=== PATIENT | male | born 1965 | race Caucasian/White ===

== ENCOUNTER 2017-11-27 23:12 | Inpatient (IN) ==
--- NOTE | 2017-11-28 00:44 | ED ---
HPI General Chief complaint: Alcohol Stated complaint: [place] Act - [employer] Time Seen by Provider: 11/28/17 00:40 History of Present Illness HPI narrative: This patient was brought in by Police Department for concern of alcohol intoxication. He was felt to be incoherent. The patient is denying any alcohol use. History is very limited however. He reports that he lives in a town home, he does not really know why he is here tonight. According to chart review he has a history of schizoaffective disorder. Related Data Home Medications Medication Instructions Recorded Confirmed Unable to Obtain Home Meds 11/28/17 11/28/17 Allergies Allergy/AdvReac Type Severity Reaction Status Date / Time *MDRO Multi-Drug Resistant AdvReac Unknown Uncoded 10/25/15 17:16 Organism Review of Systems ROS Unobtainable ROS Unobtainable: unobtainable due to mental status ROS: all other systems reviewed are negative [facility] Medical History Medical History Medical history unknown (Acute) Surgical history unknown (Acute) Social History Social History Smoking Status: Refused to answer How Often Do You Have a Drink Containing Alcohol: Unable to Obtain Recent Travel in [facility] within the Last 8 Weeks: No Recent Out of Country Travel within the Last 8 Weeks: No Immunization History Tetanus Immunization: Unable to Assess Hx Influenza Vaccine This Season: Unable to Assess Exam Narrative Exam Narrative: GENERAL: This is a well-developed well-nourished male who is in no acute distress. SKIN: Warm and dry. HEAD: Atraumatic. Normocephalic. EYES: Pupils equal and round. No scleral icterus. No injection or drainage. ENT: No nasal bleeding or discharge. Mucous membranes pink and moist. NECK: Trachea midline. No JVD. CARDIOVASCULAR: Regular rate and rhythm. No murmur appreciated. RESPIRATORY: No accessory muscle use. Clear to auscultation. Breath sounds equal bilaterally. GASTROINTESTINAL: Abdomen soft, non-tender, nondistended. Hepatic and splenic margins not palpable. Colostomy bag noted. MUSCULOSKELETAL: No obvious deformities. NEUROLOGICAL: Awake and alert. No obvious cranial nerve deficits. Motor grossly within normal limits. He knows his name. He believes that the location is January. He believes that the year is January 25. Course Initial Documented Vital Signs Temperature 98.5 F 11/28/17 00:03 Pulse Rate 62 11/28/17 00:03 Respiratory Rate 18 11/28/17 00:03 Blood Pressure 136/93 H 11/28/17 00:03 Pulse Oximetry 98 11/28/17 00:03 Last Documented Vital Signs Temperature 98.5 F 11/28/17 00:03 Pulse Rate 62 11/28/17 00:03 Respiratory Rate 18 11/28/17 00:11 Blood Pressure 136/93 H 11/28/17 00:03 Pulse Oximetry 95 11/28/17 02:25 Medical Decision Making [facility] Narrative Medical decision making narrative: This patient presents under [place] act because he was felt to be intoxicated by police. On examination he appears very confused, answers most questions incorrectly. Lab work and imaging studies were obtained. His alcohol level is negative. Drug screen was positive for benzodiazepines otherwise lab work is unremarkable. At this point time the plan is to admit the patient for observation for altered mental status. Medical Screen Exam Complete: Yes Emergency Medical Condition: Yes Differential Diagnosis Differential Diagnosis: Acute psychosis, delirium, substance-induced mood disorder, electrolyte abnormality, CVA, intracranial mass, meningitis Lab Data Result diagrams: 11/28/17 01:12 11/28/17 01:12 Lab Results 11/28/17 11/28/17 11/28/17 Range/Units 01:12 01:12 01:12 WBC 10.9 (4.0-11.0) th/mm3 RBC 5.50 (4.50-5.90) mil/mm3 Hgb 14.6 (13.0-17.0) gm/dL Hct 43.8 (39.0-51.0) % MCV 79.7 L (80.0-100.0) fL MCH 26.5 L (27.0-34.0) pg MCHC 33.3 (32.0-36.0) % RDW 18.3 H (11.6-17.2) % Plt Count 384 (150-450) th/mm3 MPV 7.6 (7.0-11.0) fL Prelim Diff (Auto) Slide review pending Neut % (Auto) 81.0 H (16.0-70.0) % Lymph % (Auto) 11.0 (9.0-44.0) % [place] % (Auto) 5.3 (0.0-8.0) % Eos % (Auto) 2.3 (0.0-4.0) % Baso % (Auto) 0.4 (0.0-2.0) % Neut # (Auto) 8.8 H (1.8-7.7) th/mm3 Lymph # (Auto) 1.2 (1.0-4.8) th/mm3 [place] # (Auto) 0.6 (0.0-0.9) th/mm3 Eos # (Auto) 0.3 (0.0-0.4) th/mm3 Baso # (Auto) 0.0 (0.0-0.2) th/mm3 WBC Differential . Diff Scan Auto diff confirmed Differential Comment . Platelet Estimate Normal (Normal) Platelet Morphology Normal (Normal) Ovalocytes 1+ H (None) Sodium 146 H (136-145) meq/L Potassium 4.3 (3.5-5.1) meq/L Chloride 109 H (98-107) meq/L Carbon Dioxide 28.7 (21.0-32.0) meq/L Anion Gap 8 (5-15) meq/L BUN 9 (7-18) mg/dL Creatinine 1.04 (0.60-1.30) mg/dL Estimated GFR 75 L (>89) mL/min Random Glucose 79 (74-106) mg/dL Calcium 9.4 (8.5-10.1) mg/dL Total Bilirubin 1.3 H (0.2-1.0) mg/dL AST 79 H (15-37) U/L ALT 46 (12-78) U/L Alkaline Phosphatase 102 (45-117) U/L Ammonia 20 (11-32) mcmol/L Total Protein 7.4 (6.4-8.2) g/dL Albumin 3.7 (3.4-5.0) g/dL Urine Opiates Screen (Neg) Ur Barbiturates Screen (Neg) Ur Amphetamines Screen (Neg) U Benzodiazepines Scrn (Neg) Urine Cocaine Screen (Neg) U Cannabinoids Screen (Neg) Serum Alcohol Less than 3 (0-5) mg/dL 11/28/17 Range/Units 02:20 WBC (4.0-11.0) th/mm3 RBC (4.50-5.90) mil/mm3 Hgb (13.0-17.0) gm/dL Hct (39.0-51.0) % MCV (80.0-100.0) fL MCH (27.0-34.0) pg MCHC (32.0-36.0) % RDW (11.6-17.2) % Plt Count (150-450) th/mm3 MPV (7.0-11.0) fL Prelim Diff (Auto) Neut % (Auto) (16.0-70.0) % Lymph % (Auto) (9.0-44.0) % [place] % (Auto) (0.0-8.0) % Eos % (Auto) (0.0-4.0) % Baso % (Auto) (0.0-2.0) % Neut # (Auto) (1.8-7.7) th/mm3 Lymph # (Auto) (1.0-4.8) th/mm3 [place] # (Auto) (0.0-0.9) th/mm3 Eos # (Auto) (0.0-0.4) th/mm3 Baso # (Auto) (0.0-0.2) th/mm3 WBC Differential Diff Scan Differential Comment Platelet Estimate (Normal) Platelet Morphology (Normal) Ovalocytes (None) Sodium (136-145) meq/L Potassium (3.5-5.1) meq/L Chloride (98-107) meq/L Carbon Dioxide (21.0-32.0) meq/L Anion Gap (5-15) meq/L BUN (7-18) mg/dL Creatinine (0.60-1.30) mg/dL Estimated GFR (>89) mL/min Random Glucose (74-106) mg/dL Calcium (8.5-10.1) mg/dL Total Bilirubin (0.2-1.0) mg/dL AST (15-37) U/L ALT (12-78) U/L Alkaline Phosphatase (45-117) U/L Ammonia (11-32) mcmol/L Total Protein (6.4-8.2) g/dL Albumin (3.4-5.0) g/dL Urine Opiates Screen Neg (Neg) Ur Barbiturates Screen Neg (Neg) Ur Amphetamines Screen Neg (Neg) U Benzodiazepines Scrn Pos H (Neg) Urine Cocaine Screen Neg (Neg) U Cannabinoids Screen Neg (Neg) Serum Alcohol (0-5) mg/dL Imaging Data Radiologist's impression: Head CT 11/28/17 00:40 CONCLUSION: 1. No acute intracranial abnormality. . Discharge Plan Discharge Disposition Patient Disposition: 30 Still Patient Discharge Condition Condition: Stable Discharge Details Diagnosis: Altered mental status Physicians Team ED Provider: Casey Rodriguez ED Midlevel Provider: Rod Briggs Primary Care Provider: Primary Care Balbiri,Vickie Rxs /Orders / Referrals /Forms Prescriptions: No Action Unable to Obtain Home Meds RF: 0 Discharge Interventions Interventions: Vital Signs Last Done: 11/28/17 00:11 Status ED Status: With Doctor
[2017-11-28 01:35] LABS: Baso % (Auto) 0.4 % (0.0-2.0); Eos # (Auto) 0.3 th/mm3 (0.0-0.4); Eos % (Auto) 2.3 % (0.0-4.0); Hematocrit 43.8 % (39.0-51.0); Hemoglobin 14.6 gm/dL (13.0-17.0); Lymph # (Auto) 1.2 th/mm3 (1.0-4.8); Mean Corpuscular HGB Conc 33.3 % (32.0-36.0); Mean Corpuscular Hemoglobin 26.5 pg (27.0-34.0); Mean Corpuscular Volume 79.7 fL (80.0-100.0); Mean Platelet Volume 7.6 fL (7.0-11.0); Mono # (Auto) 0.6 th/mm3 (0.0-0.9); Mono % (Auto) 5.3 % (0.0-8.0); Neut # (Auto) 8.8 th/mm3 (1.8-7.7); Platelet Count 384 th/mm3 (150-450); Red Cell Distribution Width 18.3 % (11.6-17.2); White Blood Count 10.9 th/mm3 (4.0-11.0)
[2017-11-28 01:56] LABS: Alkaline Phosphatase 102 U/L (45-117); Total Protein 7.4 g/dL (6.4-8.2)
[2017-11-28 02:04] LABS: Alanine Aminotransferase 46 U/L (12-78); Albumin 3.7 g/dL (3.4-5.0); Anion Gap 8 meq/L (5-15); Aspartate Aminotransferase 79 U/L (15-37); Blood Urea Nitrogen 9 mg/dL (7-18); Calcium 9.4 mg/dL (8.5-10.1); Carbon Dioxide 28.7 meq/L (21.0-32.0); Chloride 109 meq/L (98-107); Glomerular Filtration Rate 75 mL/min (>89); Glucose,Random 79 mg/dL (74-106); Sodium 146 meq/L (136-145)
[2017-11-28 02:05] LABS: Potassium 4.3 meq/L (3.5-5.1)
[2017-11-28 02:16] LABS: Ovalocytes 1+
[2017-11-28 02:17] LABS: Platelet Estimate Normal (Normal); Platelet Morphology Normal (Normal)
--- NOTE | 2017-11-28 02:24 | CT ---
EXAM DATE: 11/28/2017 1:28 AM EDT AGE/SEX: 52 years / Male INDICATIONS: Altered mental status. CLINICAL DATA: This is the patient's initial encounter. Patient reports that signs and symptoms have been present for 1 day and indicates a pain score of Nonresponsive. MEDICAL/SURGICAL HISTORY: Non-responsive. Non-responsive. RADIATION DOSE: 56.35 CTDI (mGy) ; Patient motion COMPARISON: No prior exams available for comparison. TECHNIQUE: CT of the head without contrast. Using automated exposure control and adjustment of the mA and/or kV according to patient size, radiation dose was kept as low as reasonably achievable to ob tain optimal diagnostic quality images. DICOM format image data is available electronically for revi ew and comparison. FINDINGS: There is some slight motion artifact. Cerebrum: The ventricles are normal for age. No evidence of midline shift, mass lesion, hemorrhage or acute infarction. No extraaxial fluid collections are seen. Posterior Fossa: The cerebellum and brainstem are intact. The 4th ventricle is midline. The cerebe llopontine angle is unremarkable. Extracranial: The visualized portion of the orbits is intact. Skull: The calvaria is intact. No evidence of skull fracture. CONCLUSION: 1. No acute intracranial abnormality. . Electronically signed by: Chase Valencia MD 11/28/2017 2:23 AM EDT
[2017-11-28 02:45] LABS: Amphetamine Screen,Urine Neg (Neg); Barbiturate Screen,Urine Neg (Neg); Cannabinoid Screen,Urine Neg (Neg); Cocaine Screen,Urine Neg (Neg)
[2017-11-28 03:14] LABS: Opiate Screen,Urine Neg (Neg)
--- NOTE | 2017-11-28 03:37 | P.HPIM ---
History of Present Illness Primary Care Physician: No Primary Care Physician History of Present Illness: Mr. Smalls is a 52 year old male. He is brought in by police tonight due to altered mental status. Patient denied alcohol use. Labs show no evidence of alcohol. Etiology could be related to his baseline schizoaffective disorder. If not schizoaffective related, it could be substance induced or seizure related , though he has no prior history of seizure. CT shows no evidence of structural pathology as a cause. Patient can provide no useful history tonight. - Diagnosis (1) Schizoaffective disorder (2) Altered mental status Inpatient Certification: I certify that the inpatient services were ordered in accordance with Medicare regulations governing the order. This includes certification that hospital inpatient services are reasonable and necessary and in the case of services not specified as inpatient-only under 42 CFR 419.22(n), that they are appropriately provided as inpatient services in accordance to with the 2-midnight benchmark under 43 CFR 412.3(e) Review of Systems unobtainable due to mental condition, unobtainable due to mental status PMFSH - History History Provided By: Law Enforcement - Medical / Surgical Hx Neg / Unobtainable Medical Problems Denied: Unable to Obtain Surgical History: Unable to Obtain - Medical History Medical History: Medical History (Last Updated 11/28/17 @ 00:05 by Rosa Maria Lopes RN) Medical history unknown Surgical history unknown - Family History Family History: Family History (Last Updated 11/28/17 @ 03:30 by Missael Escobedo MD) Other Osteoarthritis - Tobacco History Smoking Status: Refused to answer - Alcohol History How Often Do You Have a Drink Containing Alcohol: Unable to Obtain - Travel History Recent Travel in the [place] Within the Last 8 Weeks: No Recent Travel Out of the Country Within the Last 8 Weeks: No - Immunization History Tetanus Immunization: Unable to Assess Hx Influenza Vaccine This Season: Unable to Assess Medications and Allergies Active Medications: Active Medications Al Hydroxide/Mg Hydroxide (Milk Of Magnesia Liq) 30 ml PO Q12H PRN PRN Reason: Mild Constipation Sodium Chloride (Ns Inj) 1,000 mls @ 100 mls/hr IV.CONT .Q10H JEFFREY Sodium Chloride (Ns Flush) 2 ml IV.FLUSH PRN PRN PRN Reason: FLUSH AFTER USING IV ACCESS Allergies Allergy/AdvReac Type Severity Reaction Status Date / Time *MDRO Multi-Drug Resistant AdvReac Unknown Uncoded 10/25/15 17:16 Organism Home Medications Medication Instructions Recorded Confirmed Type Unable to Obtain Home Meds 11/28/17 11/28/17 History Exam Vital signs: Vital Signs 11/28/17 00:03 11/28/17 00:11 11/28/17 02:25 Temperature 98.5 F Pulse Rate 62 Respiratory Rate 18 18 Blood Pressure 136/93 H Pulse Oximetry 98 95 Intake & Output 11/27/17 11/27/17 11/28/17 06:59 18:59 06:59 Weight 81.647 kg Narrative: GENERAL: NAD, A&Ox0 HEAD: Normocephalic. NECK: Supple, trachea midline. No lymphadenopathy. EYES: No scleral icterus. No injection or drainage. CARDIOVASCULAR: Regular rate and rhythm without murmurs, gallops, or rubs. RESPIRATORY: Breath sounds equal bilaterally. No accessory muscle use. GASTROINTESTINAL: Abdomen soft, non-tender, nondistended. MUSCULOSKELETAL: No cyanosis, or edema. SKIN: Warm and dry. NEURO: No focal neurological deficits. Results - Labs CBC & Chem 7: 11/28/17 01:12 11/28/17 01:12 Labs: Short CBC 11/28/17 Range/Units 01:12 WBC 10.9 (4.0-11.0) th/mm3 Hgb 14.6 (13.0-17.0) gm/dL Hct 43.8 (39.0-51.0) % Plt Count 384 (150-450) th/mm3 [facility] 11/28/17 01:12 Sodium 146 H Potassium 4.3 Chloride 109 H Carbon Dioxide 28.7 BUN 9 Creatinine 1.04 Calcium 9.4 Liver Function 11/28/17 Range/Units 01:12 Total Bilirubin 1.3 H (0.2-1.0) mg/dL AST 79 H (15-37) U/L ALT 46 (12-78) U/L Alkaline Phosphatase 102 (45-117) U/L Albumin 3.7 (3.4-5.0) g/dL - Imaging Impressions Head CT 11/28/17 00:40 CONCLUSION: 1. No acute intracranial abnormality. . Caprini VTE Risk Assessment Caprini VTE Risk Assessment: No/Low Risk (score <= 1) Caprini Risk Assessment Model: Point Value = 1 Point Value = 2 Point Value = 3 Point Value = 5 Age 41-60 Minor surgery BMI > 25 kg/m2 Swollen legs Varicose veins or History of unexplained or recurrent spontaneous Oral contraceptives or hormone replacement Sepsis (< 1 month) Serious lung disease, including pneumonia (< 1 month) Abnormal pulmonary function Acute myocardial infarction Congestive heart failure (< 1 month) History of inflammatory bowel disease Medical patient at bed rest Age 61-74 Arthroscopic surgery Major open surgery (> 45 min) Laparoscopic surgery (> 45 min) Malignancy Confined to bed (> 72 hours) Immobilizing plaster cast Central venous access Age >= 75 History of VTE Family history of VTE Factor V Leiden Prothrombin [id number] Lupus anticoagulant Anticardiolipin antibodies Elevated serum homocysteine Heparin-induced thrombocytopenia Other congenital or acquired thrombophilia Stroke (< 1 month) Elective arthroplasty Hip, pelvis, or leg fracture Acute spinal cord injury (< 1 month) Prophylaxis Regimen: Total Risk Factor Score Risk Level Prophylaxis Regimen 0-1 Low Early ambulation 2 Moderate Order ONE of the following: *Sequential Compression Device (SCD) *Heparin 5000 units SQ BID 3-4 Higher Order ONE of the following medications: *Heparin 5000 units SQ TID *Enoxaparin/Lovenox 40 mg SQ daily (WT < 150 kg, CrCl > 30 mL/min) *Enoxaparin/Lovenox 30 mg SQ daily (WT < 150 kg, CrCl > 10-29 mL/min) *Enoxaparin/Lovenox 30 mg SQ BID (WT < 150 kg, CrCl > 30 mL/min) AND/OR *Sequential Compression Device (SCD) 5 or more Highest Order ONE of the following medications: *Heparin 5000 units SQ TID (Preferred with Epidurals) *Enoxaparin/Lovenox 40 mg SQ daily (WT < 150 kg, CrCl > 30 mL/min) *Enoxaparin/Lovenox 30 mg SQ daily (WT < 150 kg, CrCl > 10-29 mL/min) *Enoxaparin/Lovenox 30 mg SQ BID (WT < 150 kg, CrCl > 30 mL/min) AND *Sequential Compression Device (SCD) Assessment and Plan - Assessment (1) Schizoaffective disorder Code(s): F25.9 - Schizoaffective disorder, unspecified Status: Acute (2) Altered mental status Code(s): R41.82 - Altered mental status, unspecified Status: Acute - Plan 52 year old male admitted with altered mental status Altered Mental Status Schizoaffective Disorder Etiology may be related to his schizoaffective disorder Psychiatry consulted If this is substance induced or seizure related, improvement should be seen through time IV Hydration Monitor for improvement DVT Prophylaxis SCDs
[2017-11-28] MEDS: Sod Chloride 0.9% Inj 1,000 ML IV.CONT SCH ×3 (04:05→22:38)
--- NOTE | 2017-11-28 08:41 | ECG ---
Date Performed: 11/28/2017 Time Performed: 01:03:26 PTAGE: 52 years EKG: Sinus rhythm NORMAL ECG PREVIOUS TRACING : 11/13/2015 01.52 No significant change from previous tracing noted. DOCTOR: Kris Koo Interpretating Date/Time 11/28/2017 08:40:42
--- NOTE | 2017-11-28 13:10 | P.CONPSY ---
Provisional Diagnosis Admission Date: November 28, 2017 04:26 Anita I.: Delirium, schizoaffective disorder, bipolar type, history of polysubstance dependence History of Present Illness Service: ER Primary Care Provider: UNKNOWN History of Present Illness: The patient is a 52 year old man, with psychiatric history of schizoaffective disorder, polysubstance dependence, multiple psychiatric hospitalizations, as per chart review the patient has history of benzodiazepines , cocaine, cannabis and alcohol abuse in the past, who was brought in by police tonight due to altered mental status. Patient denied alcohol use. Labs show no evidence of alcTheohol. Etiology could be related to his baseline schizoaffective disorder. If not schizoaffective related, it could be substance induced or seizure related, though he has no prior history of seizure. CT shows no evidence of structural pathology as a cause. Patient can provide no useful history tonight. Consulted to psychiatry to explore altered mental status. On my evaluation I find a patient that is very lethargic, obtunded, stuporous, slurred speech, with a significant attention deficit and fluctuation of consciousness, very confused, unable to provide any meaningful information for the psychiatric assessment. The patient seems that we are in January 25[birth year] 2065, he does not know the reason of his ER visit, he does not even know where he is at this moment. He does report good mood, denies suicidal ideation, denies homicidal ideation, denies visual and auditory hallucinations at this moment. PMF - History History Provided By: Law Enforcement - Medical / Surgical Hx Neg / Unobtainable Medical Problems Denied: Unable to Obtain - Medical History Medical History: Medical History (Last Updated 11/28/17 @ 00:05 by Rosa Maria Lopes RN) Medical history unknown Surgical history unknown - Family History Family History: Family History (Last Updated 11/28/17 @ 03:30 by Missael Escobedo MD) Other Osteoarthritis - Tobacco History Smoking Status: Refused to answer - Alcohol History How Often Do You Have a Drink Containing Alcohol: Unable to Obtain - Travel History Recent Travel in the [place] Within the Last 8 Weeks: No Recent Travel Out of the Country Within the Last 8 Weeks: No - Immunization History Tetanus Immunization: Unable to Assess Hx Influenza Vaccine This Season: Unable to Assess Medications and Allergies Active Medications: Active Medications Al Hydroxide/Mg Hydroxide (Milk Of Magnesia Liq) 30 ml PO Q12H PRN PRN Reason: Mild Constipation Sodium Chloride (Ns Inj) 1,000 mls @ 100 mls/hr IV.CONT .Q10H JEFFREY Last Infusion: 11/28/17 10:10 Dose: 1,000 mls/hr Sodium Chloride (Ns Flush) 2 ml IV.FLUSH PRN PRN PRN Reason: FLUSH AFTER USING IV ACCESS Allergies Allergy/AdvReac Type Severity Reaction Status Date / Time *MDRO Multi-Drug Resistant AdvReac Unknown Uncoded 10/25/15 17:16 Organism Home Medications Medication Instructions Recorded Confirmed Type Unable to Obtain Home Meds 11/28/17 11/28/17 History Exam Vital signs: Vital Signs 11/28/17 00:03 11/28/17 00:11 11/28/17 02:25 Temperature 98.5 F Pulse Rate 62 Respiratory Rate 18 18 Blood Pressure 136/93 H Pulse Oximetry 98 95 11/28/17 04:16 11/28/17 11:19 Temperature Pulse Rate 65 Respiratory Rate 18 Blood Pressure 152/96 H 156/75 H Pulse Oximetry Intake & Output 11/27/17 11/28/17 11/28/17 18:59 06:59 18:59 Weight 81.647 kg Mental Status Examination Appearance: Dirty, Disheveled Consciousness: Obtunded, Clouded Orientation: Person Speech: Incoherent Language: Adequate Memory: Impaired Mood: Appropriate Affect: Appropriate Thought Process & Associations: Loose associations Thought Content: Thought blocking Delusion Type: Bizarre Suicidal Ideation: No Suicidal Plan: No Suicidal Intention: No Homicidal Ideation: No Homicidal Plan: No Homicidal Intention: No Insight: Poor Judgment: Poor Assessment and Plan - Assessment (1) Delirium Code(s): R41.0 - Disorientation, unspecified Status: Acute - Plan Plan: Estimated LOS: [] days Unclear if patient by the psychiatric admission at this moment. I will follow- up. Justification for Continued Inpatient Stay: The patient presents with slurred speech, lethargic, very confused, disoriented , unable to provide any significant information for the psychiatric assessment at this moment. This presentation seems to be more related with delirium then to a primary psychiatric illness decompensation. The patient has history of schizoaffective disorder, polysubstance dependence, multiple psychiatric admissions in the past, suicidal attempts, unclear if he has been taking any psychotropic recently. Continue medical management of altered mental status, drug intoxication is possible. He is positive for benzodiazepine with unclear source. I will follow-up.
--- NOTE | 2017-11-28 13:36 | P.PNIM ---
Subjective Interval history: Mr. Smalls is a 52 year old male. He is brought in by police tonight due to altered mental status. Patient denied alcohol use. Labs show no evidence of alcohol. Etiology could be related to his baseline schizoaffective disorder. If not schizoaffective related, it could be substance induced or seizure related , though he has no prior history of seizure. CT shows no evidence of structural pathology as a cause. Patient can provide no useful history tonight. 11-28 patient has been seen by psychiatry already. They have not signed off yet. Patient is still confused. When asked where he is he states "here". When I asked him where "here" was he stated 'here'. Unsure if patient is just being difficult or really has no idea where he is. Since he has not been cleared by psychiatry we will monitor him today we will get a.m. labs. Patient has not been Sue act. And if patient leaves the floor on his own recognizance it will be his choice. Patient may leave AGAINST MEDICAL ADVICE once he decides he is ready for interaction with the rest of the world. Physical Exam Vital signs: Vital Signs 11/28/17 00:03 11/28/17 00:11 11/28/17 02:25 Temperature 98.5 F Pulse Rate 62 Respiratory Rate 18 18 Blood Pressure 136/93 H Pulse Oximetry 98 95 11/28/17 04:16 11/28/17 11:19 Temperature Pulse Rate 65 Respiratory Rate 18 Blood Pressure 152/96 H 156/75 H Pulse Oximetry Intake & Output 11/27/17 11/28/17 11/28/17 18:59 06:59 18:59 Weight 81.647 kg Narrative: GENERAL: NAD, A&Ox0 HEAD: Normocephalic. NECK: Supple, trachea midline. No lymphadenopathy. EYES: No scleral icterus. No injection or drainage. CARDIOVASCULAR: Regular rate and rhythm without murmurs, gallops, or rubs. RESPIRATORY: Breath sounds equal bilaterally. No accessory muscle use. GASTROINTESTINAL: Abdomen soft, non-tender, nondistended. MUSCULOSKELETAL: No cyanosis, or edema. SKIN: Warm and dry. NEURO: No focal neurological deficits. - Urinary Catheter Management Straight Cath placed during this visit: no Reason for continuing: Not indwelling catheter Results - Labs CBC & Chem 7: 11/28/17 01:12 11/28/17 01:12 Laboratory Results - last 24 hr 11/28/17 11/28/17 11/28/17 01:12 01:12 01:12 WBC 10.9 RBC 5.50 Hgb 14.6 Hct 43.8 MCV 79.7 L MCH 26.5 L MCHC 33.3 RDW 18.3 H Plt Count 384 MPV 7.6 Prelim Diff (Auto) Slide review pending Neut % (Auto) 81.0 H Lymph % (Auto) 11.0 Bell % (Auto) 5.3 Eos % (Auto) 2.3 Baso % (Auto) 0.4 Neut # (Auto) 8.8 H Lymph # (Auto) 1.2 Bell # (Auto) 0.6 Eos # (Auto) 0.3 Baso # (Auto) 0.0 WBC Differential . Diff Scan Auto diff confirmed Differential Comment . Platelet Estimate Normal Platelet Morphology Normal Ovalocytes 1+ H Sodium 146 H Potassium 4.3 Chloride 109 H Carbon Dioxide 28.7 Anion Gap 8 BUN 9 Creatinine 1.04 Estimated GFR 75 L Random Glucose 79 Calcium 9.4 Total Bilirubin 1.3 H AST 79 H ALT 46 Alkaline Phosphatase 102 Ammonia 20 Total Protein 7.4 Albumin 3.7 Urine Opiates Screen Ur Barbiturates Screen Ur Amphetamines Screen U Benzodiazepines Scrn Urine Cocaine Screen U Cannabinoids Screen Serum Alcohol Less than 3 11/28/17 02:20 WBC RBC Hgb Hct MCV MCH MCHC RDW Plt Count MPV Prelim Diff (Auto) Neut % (Auto) Lymph % (Auto) Bell % (Auto) Eos % (Auto) Baso % (Auto) Neut # (Auto) Lymph # (Auto) Bell # (Auto) Eos # (Auto) Baso # (Auto) WBC Differential Diff Scan Differential Comment Platelet Estimate Platelet Morphology Ovalocytes Sodium Potassium Chloride Carbon Dioxide Anion Gap BUN Creatinine Estimated GFR Random Glucose Calcium Total Bilirubin AST ALT Alkaline Phosphatase Ammonia Total Protein Albumin Urine Opiates Screen Neg Ur Barbiturates Screen Neg Ur Amphetamines Screen Neg U Benzodiazepines Scrn Pos H Urine Cocaine Screen Neg U Cannabinoids Screen Neg Serum Alcohol - Imaging Impressions Head CT 11/28/17 00:40 CONCLUSION: 1. No acute intracranial abnormality. . - Procedures None Assessment and Plan - Assessment (1) Schizoaffective disorder Code(s): F25.9 - Schizoaffective disorder, unspecified Status: Acute (2) Altered mental status Code(s): R41.82 - Altered mental status, unspecified Status: Acute - Plan 52 year old male admitted with altered mental status Altered Mental Status Schizoaffective Disorder Etiology may be related to his schizoaffective disorder Psychiatry consulted If this is substance induced or seizure related, improvement should be seen through time IV Hydration Monitor for improvement Patient currently is not Sue acted and may leave AGAINST MEDICAL ADVICE when he returns to his normal baseline. Have discussed with his RN on the floor. Will get a.m. labs. Has been seen by psychiatry who has not cleared him nor have they Sue acted him. DVT Prophylaxis SCDs Code Status: Full code Discussed Condition With: RN and patient and case management Discharge Planning: Pending improvement of his mental status
[2017-11-28 22:51] LABS: Hepatitis A IgM Antibody Nonreactive (Nonreactive); Hepatitits B Surface Antigen Nonreactive (Nonreactive)
[2017-11-29 06:55] LABS: Baso # (Auto) 0.1 th/mm3 (0.0-0.2); Baso % (Auto) 0.9 % (0.0-2.0); Eos # (Auto) 0.5 th/mm3 (0.0-0.4); Hematocrit 38.8 % (39.0-51.0); Hemoglobin 12.8 gm/dL (13.0-17.0); Lymph # (Auto) 1.9 th/mm3 (1.0-4.8); Lymph % (Auto) 27.4 % (9.0-44.0); Mean Corpuscular HGB Conc 32.9 % (32.0-36.0); Mean Corpuscular Hemoglobin 26.4 pg (27.0-34.0); Mean Corpuscular Volume 80.1 fL (80.0-100.0); Mean Platelet Volume 7.3 fL (7.0-11.0); Mono # (Auto) 0.7 th/mm3 (0.0-0.9); Mono % (Auto) 9.8 % (0.0-8.0); Neut # (Auto) 3.8 th/mm3 (1.8-7.7); Neut % (Auto) 54.9 % (16.0-70.0); Platelet Count 317 th/mm3 (150-450); Red Blood Count 4.84 mil/mm3 (4.50-5.90); Red Cell Distribution Width 17.9 % (11.6-17.2); White Blood Count 6.9 th/mm3 (4.0-11.0)
[2017-11-29 06:58] LABS: INR 1.1 Ratio; Prothrombin Time 10.7 sec (9.8-11.6)
[2017-11-29 07:18] LABS: Alanine Aminotransferase 48 U/L (12-78); Alkaline Phosphatase 85 U/L (45-117); Anion Gap 9 meq/L (5-15); Aspartate Aminotransferase 81 U/L (15-37); Blood Urea Nitrogen 6 mg/dL (7-18); Carbon Dioxide 25.6 meq/L (21.0-32.0); Chloride 110 meq/L (98-107); Glomerular Filtration Rate Greater Than 89 mL/min (>89); Glucose,Random 70 mg/dL (74-106); Magnesium 1.8 mg/dL (1.5-2.5); Phosphorus 3.1 mg/dL (2.5-4.9); Potassium 3.4 meq/L (3.5-5.1); Sodium 145 meq/L (136-145); Total Protein 6.3 g/dL (6.4-8.2)
[2017-11-29] MEDS: Sod Chloride 0.9% Inj 1,000 ML IV.CONT SCH (08:57)
[2017-11-29 11:24] LABS: Hemoglobin A1c 6.1 % (4.3-6.0)
--- NOTE | 2017-11-29 12:56 | P.PN ---
Subjective Interval history: Follow-up toxic encephalopathy/schizoaffective disorder November 29, 2017-patient seen and examined, patient is alert oriented to self not to date. Initially patient refused to eat however now he was willing to take his breakfast. Afebrile. Physical Exam Vital signs: Vital Signs 11/28/17 16:00 11/28/17 19:19 11/28/17 20:00 Temperature 97.8 F 97.4 F L Pulse Rate 56 L 63 Respiratory Rate 20 18 Blood Pressure 118/76 151/91 H Pulse Oximetry 96 97 95 11/29/17 00:00 11/29/17 04:00 11/29/17 07:50 Temperature 97.3 F L 97.4 F L Pulse Rate 52 L 55 L 64 Respiratory Rate 18 17 Blood Pressure 152/87 H 128/83 Pulse Oximetry 97 93 L 11/29/17 08:00 11/29/17 10:37 Temperature Pulse Rate Respiratory Rate 20 Blood Pressure Pulse Oximetry 96 Intake & Output 11/28/17 11/29/17 11/29/17 18:59 06:59 18:59 Intake Total 1000 / 1000 1000 / 1000 Output Total 800 / 800 Balance 1000 / 1000 -800 / -800 1000 / 1000 Weight 90.7 kg 90.7 kg Intake: IV 1000 / 1000 1000 / 1000 NS Inj 1,000 ML @ 100 mls/hr IV 1000 / 1000 1000 / 1000 .CONT .Q10H JEFFREY Rx#:[id number] Output: Urine 800 / 800 Other: # Voids 1 Date of Last Bowel Movement 11/28/17 11/29/17 # Bowel Movements 1 Weight On Admission 90.7 kg Narrative: GENERAL: NAD SKIN: Warm and dry. HEAD: Normocephalic. EYES: No scleral icterus. No injection or drainage. NECK: Supple, trachea midline. No JVD or lymphadenopathy. CARDIOVASCULAR: Regular rate and rhythm without murmurs, gallops, or rubs. RESPIRATORY: Breath sounds equal bilaterally. No accessory muscle use. GASTROINTESTINAL: Abdomen soft, non-tender, nondistended. MUSCULOSKELETAL: No cyanosis, or edema. BACK: Nontender without obvious deformity. No CVA tenderness. - Urinary Catheter Management Straight Cath placed during this visit: no Reason for continuing: Not indwelling catheter Results - Labs CBC & Chem 7: 11/29/17 06:16 11/29/17 06:16 Laboratory Results - last 24 hr 11/28/17 11/28/17 11/28/17 01:12 01:12 01:12 WBC RBC Hgb Hct MCV MCH MCHC RDW Plt Count MPV Neut % (Auto) Lymph % (Auto) Stephens % (Auto) Eos % (Auto) Baso % (Auto) Neut # (Auto) Lymph # (Auto) Stephens # (Auto) Eos # (Auto) Baso # (Auto) WBC Differential Differential Comment PT INR Sodium Potassium Chloride Carbon Dioxide Anion Gap BUN Creatinine Estimated GFR Random Glucose Hemoglobin A1c 6.1 H Calcium Phosphorus Magnesium Total Bilirubin AST ALT Alkaline Phosphatase Total Protein Albumin TSH 1.180 Free T4 1.26 Hepatitis A IgM Ab Hep Bs Antigen Hep B Core IgM Ab Hep C IgG Ab 11/28/17 11/29/17 11/29/17 21:05 06:16 06:16 WBC 6.9 RBC 4.84 Hgb 12.8 L Hct 38.8 L MCV 80.1 MCH 26.4 L MCHC 32.9 RDW 17.9 H Plt Count 317 MPV 7.3 Neut % (Auto) 54.9 Lymph % (Auto) 27.4 Stephens % (Auto) 9.8 H Eos % (Auto) 7.0 H Baso % (Auto) 0.9 Neut # (Auto) 3.8 Lymph # (Auto) 1.9 Stephens # (Auto) 0.7 Eos # (Auto) 0.5 H Baso # (Auto) 0.1 WBC Differential . Differential Comment Auto diff final PT INR Sodium 145 Potassium 3.4 L D Chloride 110 H Carbon Dioxide 25.6 Anion Gap 9 BUN 6 L Creatinine 0.76 Estimated GFR Greater than 89 Random Glucose 70 L Hemoglobin A1c Calcium 8.0 L D Phosphorus 3.1 Magnesium 1.8 Total Bilirubin 1.0 AST 81 H ALT 48 Alkaline Phosphatase 85 Total Protein 6.3 L D Albumin 3.0 L D TSH Free T4 Hepatitis A IgM Ab Nonreactive Hep Bs Antigen Nonreactive Hep B Core IgM Ab Nonreactive Hep C IgG Ab Reactive H 11/29/17 06:16 WBC RBC Hgb Hct MCV MCH MCHC RDW Plt Count MPV Neut % (Auto) Lymph % (Auto) Stephens % (Auto) Eos % (Auto) Baso % (Auto) Neut # (Auto) Lymph # (Auto) Stephens # (Auto) Eos # (Auto) Baso # (Auto) WBC Differential Differential Comment PT 10.7 INR 1.1 Sodium Potassium Chloride Carbon Dioxide Anion Gap BUN Creatinine Estimated GFR Random Glucose Hemoglobin A1c Calcium Phosphorus Magnesium Total Bilirubin AST ALT Alkaline Phosphatase Total Protein Albumin TSH Free T4 Hepatitis A IgM Ab Hep Bs Antigen Hep B Core IgM Ab Hep C IgG Ab - Procedures None Assessment and Plan - Assessment (1) Schizoaffective disorder Code(s): F25.9 - Schizoaffective disorder, unspecified Status: Acute (2) Altered mental status Code(s): R41.82 - Altered mental status, unspecified Status: Inactive (3) Toxic encephalopathy Code(s): G92 - Toxic encephalopathy Status: Acute - Plan 52-year-old man with Toxic encephalopathy-improving Schizoaffective disorder Appreciate input from psychiatry however he does not appear to be psychiatric issue at this point Hep-Lock IV fluid Hep C IgG IgA antibody positive Patient will follow outpatient with hepatology for further workup Hypokalemia Replace electrolytes and monitor DVT prophylaxis: Bilateral SCDs
[2017-11-30 00:21] VITALS: TEMP 97.8
[2017-11-30 10:14] VITALS: BP 133/102; PULSE 74; RESP 20; O2SAT 97
--- NOTE | 2017-11-30 10:28 | P.PN ---
Subjective Interval history: Follow-up toxic encephalopathy/schizoaffective disorder November 29, 2017-patient seen and examined, patient is alert oriented to self not to date. Initially patient refused to eat however now he was willing to take his breakfast. Afebrile. November 30, 2017-patient seen and examined, he was up and ambulated with PT. Alert and oriented 3 today. States he is ready to go home. No acute event overnight. Physical Exam Vital signs: Vital Signs 11/29/17 10:37 11/29/17 12:00 11/29/17 16:00 Temperature 97.8 F 98.4 F Pulse Rate 62 56 L Respiratory Rate 20 20 Blood Pressure 156/89 H 147/83 H Pulse Oximetry 96 91 L 95 11/29/17 17:25 11/29/17 20:00 11/30/17 00:00 Temperature 97.8 F Pulse Rate 49 L 65 65 Respiratory Rate 18 Blood Pressure 134/90 Pulse Oximetry 95 11/30/17 04:00 11/30/17 08:00 Temperature 97.8 F 97.8 F Pulse Rate 57 L 74 Respiratory Rate 18 20 Blood Pressure 124/85 133/102 H Pulse Oximetry 91 L 97 Intake & Output 11/29/17 11/30/17 11/30/17 18:59 06:59 18:59 Intake Total 1370 / 1370 720 / 720 Output Total 875 / 875 450 / 450 Balance 495 / 495 270 / 270 Weight 88.5 kg Intake: IV 1250 / 1250 NS Inj 1,000 ML @ 100 mls/hr IV 1250 / 1250 .CONT .Q10H JEFFREY Rx#:[id number] Oral 120 / 120 720 / 720 Output: Urine 875 / 875 450 / 450 Other: # Bowel Movements 0 0 Narrative: GENERAL: NAD SKIN: Warm and dry. HEAD: Normocephalic. EYES: No scleral icterus. No injection or drainage. NECK: Supple, trachea midline. No JVD or lymphadenopathy. CARDIOVASCULAR: Regular rate and rhythm without murmurs, gallops, or rubs. RESPIRATORY: Breath sounds equal bilaterally. No accessory muscle use. GASTROINTESTINAL: Abdomen soft, non-tender, nondistended. MUSCULOSKELETAL: No cyanosis, or edema. BACK: Nontender without obvious deformity. No CVA tenderness. - Urinary Catheter Management Straight Cath placed during this visit: no Reason for continuing: Not indwelling catheter Results - Labs CBC & Chem 7: 11/29/17 06:16 11/29/17 06:16 Laboratory Results - last 24 hr 11/28/17 01:12 Hemoglobin A1c 6.1 H - Procedures None Assessment and Plan - Assessment (1) Schizoaffective disorder Code(s): F25.9 - Schizoaffective disorder, unspecified Status: Acute (2) Altered mental status Code(s): R41.82 - Altered mental status, unspecified Status: Inactive (3) Toxic encephalopathy Code(s): G92 - Toxic encephalopathy Status: Acute - Plan 52-year-old man with Toxic encephalopathy-Resolved Schizoaffective disorder Appreciate input from psychiatry however he does not appear to be psychiatric issue at this point Hep C IgG IgA antibody positive Patient will follow outpatient with hepatology for further workup Hypokalemia Resolved s/p replacement of electrolytes and monitor DVT prophylaxis: Bilateral SCDs
--- NOTE | 2017-11-30 10:30 | P.DS ---
Date of admission: 11/28/17 04:26 Primary care physician: UNKNOWN Anticipated date of discharge: 11/30/17 Brief History from admission: Mr. Smalls is a 52 year old male. He is brought in by police tonight due to altered mental status. Patient denied alcohol use. Labs show no evidence of alcohol. Etiology could be related to his baseline schizoaffective disorder. If not schizoaffective related, it could be substance induced or seizure related , though he has no prior history of seizure. CT shows no evidence of structural pathology as a cause. Patient can provide no useful history tonight. DS: Diagnosis - Discharge Diagnosis (1) Schizoaffective disorder Status: Acute (2) Altered mental status Status: Inactive (3) Toxic encephalopathy Status: Acute DS: Summary Hospital Course: While in hospital, patient was treated for: Toxic encephalopathy-Resolved prior to discharge Schizoaffective disorder Appreciate input from psychiatry however he does not appear to be psychiatric issue at this point Hep C IgG IgA antibody positive Patient will follow outpatient with hepatology for further workup Hypokalemia Resolved s/p replacement of electrolytes and monitor Physical therapy was consulted and patient was able to ambulate without any assistance DVT prophylaxis: Bilateral SCDs - Time Spent with Patient Total time spent providing and/or coordinating discharge services: Less than 30 minutes Exam Vital signs: Vital Signs 11/29/17 10:37 11/29/17 12:00 11/29/17 16:00 Temperature 97.8 F 98.4 F Pulse Rate 62 56 L Respiratory Rate 20 20 Blood Pressure 156/89 H 147/83 H Pulse Oximetry 96 91 L 95 11/29/17 17:25 11/29/17 20:00 11/30/17 00:00 Temperature 97.8 F Pulse Rate 49 L 65 65 Respiratory Rate 18 Blood Pressure 134/90 Pulse Oximetry 95 11/30/17 04:00 11/30/17 08:00 Temperature 97.8 F 97.8 F Pulse Rate 57 L 74 Respiratory Rate 18 20 Blood Pressure 124/85 133/102 H Pulse Oximetry 91 L 97 Intake & Output 11/29/17 11/30/17 11/30/17 18:59 06:59 18:59 Intake Total 1370 / 1370 720 / 720 Output Total 875 / 875 450 / 450 Balance 495 / 495 270 / 270 Weight 88.5 kg Intake: IV 1250 / 1250 NS Inj 1,000 ML @ 100 mls/hr IV 1250 / 1250 .CONT .Q10H JEFFREY Rx#:[id number] Oral 120 / 120 720 / 720 Output: Urine 875 / 875 450 / 450 Other: # Bowel Movements 0 0 Narrative: GENERAL: NAD SKIN: Warm and dry. HEAD: Normocephalic. EYES: No scleral icterus. No injection or drainage. NECK: Supple, trachea midline. No JVD or lymphadenopathy. CARDIOVASCULAR: Regular rate and rhythm without murmurs, gallops, or rubs. RESPIRATORY: Breath sounds equal bilaterally. No accessory muscle use. GASTROINTESTINAL: Abdomen soft, non-tender, nondistended. MUSCULOSKELETAL: No cyanosis, or edema. BACK: Nontender without obvious deformity. No CVA tenderness. Results Procedures completed during hospitalization: None Labs on day of discharge: Labs from last 24 hours 11/28/17 01:12 Hemoglobin A1c 6.1 H - Impressions ITS Impressions Head CT 11/28/17 00:40 CONCLUSION: 1. No acute intracranial abnormality. . Discharge Plan - Discharge Disposition Patient Disposition: Discharge Home - Discharge Condition Condition: Stable - Discharge Order Discharge Orders: Discharge Order (Routine); Ordered 11/30/17 Ordered By: Chase Reza - Discharge Details Anticipated Discharge Date: 11/30/17 - Physicians Team Primary Care Provider: UNKNOWN, Attending Provider: Chase Reza Other Providers: Jose Angel Thompson MD
== END 2017-11-30 11:07 | disposition home or self-care (01) ==
LOC: NEDA 23:12 → NEPD 23:12 → N04 11-28 11:44
PROVIDERS: ADMIT Hospitalist; ATTEND Hospitalist